=== PATIENT | female | born 1955 | race Caucasian/White ===

== ENCOUNTER 2018-08-23 12:54 | Emergency (ER) | payer MEDICAID ==
[2018-08-23] MEDS ORDERED: Tetracaine HCl/PF 0.5% 4 ML Bottle EYELF ONE (13:08)
--- NOTE | 2018-08-23 13:37 | EDM.PDOC ---
ED HPI GENERAL MEDICAL PROBLEM - General Chief Complaint: Eye Problems Stated Complaint: PUT THE GLU IN EYE NOT HER EYE DROPS Time Seen by Provider: 08/23/18 13:30 Source of Information: Reports: Patient History Limitations: Reports: No Limitations - History of Present Illness INITIAL COMMENTS - FREE TEXT/NARRATIVE: pt placed eye drops in her eyes but instead of the drops she put the glue that hold fingernail s on. She can not open her left eye. Onset: Other ( The pt is nopt able to open her left eye. ) Duration: Hour(s): Location: Reports: Face Associated Symptoms: Reports: No Other Symptoms Left Eye Pain Score (Numeric/FACES): 10 - Related Data Allergies Allergy/AdvReac Type Severity Reaction Status Date / Time No Known Allergies Allergy Verified 08/23/18 13:22 Home Meds: Home Meds NK [No Known Home Meds] 08/23/18 [History] ED ROS GENERAL - Review of Systems Review Of Systems: See Below Constitutional: Reports: No Symptoms HEENT: Reports: Other ( the left eye is glued shut. ) Respiratory: Reports: No Symptoms Cardiovascular: Reports: No Symptoms Endocrine: Reports: No Symptoms GI/Abdominal: Reports: No Symptoms : Reports: No Symptoms ED EXAM GENERAL W FULL EYE - Physical Exam Exam: See Below Text/Narrative:: pt arrived with her left eye glued shut. She put the glue to hold fonger nails on in her eye accidently last nite. She is having pain in the eye. Exam Limited By: No Limitations General Appearance: Alert, Moderate Distress, Other (left eye is glued shut. Tetracaine drops were appied and inserted. With slight manipulation the lid was opened. At that time there was a milky coating over the left cornea. Tetracine drops were inserted in the eye and the coating began to float ansd this was loose solidified glue over the cornea. This was removed without difficyulty. The cornea is inflamed and there is edema present. She is able to read large print. The tetracain was very helpful for her pain. ) Nose: Normal Inspection Throat/Mouth: Normal Inspection Head: Atraumatic Neck: Normal Inspection Respiratory/Chest: No Respiratory Distress Cardiovascular: Regular Rate, Rhythm Course - Vital Signs Last Recorded V/S: Last Vital Signs Temp Pulse 75 08/23/18 13:14 Resp 20 08/23/18 13:14 BP 159/93 H 08/23/18 13:14 Pulse Ox 97 08/23/18 13:14 - Orders/Labs/Meds Meds: Medications Discontinued Medications Generic Name Dose Route Start Last Admin Trade Name Karolina PRN Reason Stop Dose Admin Tetracaine HCl 1 ml 08/23/18 13:08 08/23/18 13:34 Tetracaine 0.5% Steri-Unit Anne-Marie EYELF 08/23/18 13:09 1 drop ASDIRECTED ONE Administration - Re-Assessments/Exams Free Text/Narrative Re-Assessment/Exam: 08/23/18 13:51 [facility] was called and they are willing to see the pt and evaluate the cornea. She is much more comfortable. Departure - Departure Time of Disposition: 13:37 Disposition: Home, Self-Care 01 Condition: Fair Clinical Impression: Eye burn, Conjunctivitis - Discharge Information Referrals: PCP,None [Primary Care Provider] - Forms: ED Department Discharge Care Plan Goals: pt had a large amount of fingernail glue in the left eye. This loosened up and was floating after the tetracine drops were inserted. The glue was removed and she will now be transfered to the [facility].
== END 2018-08-23 14:02 | disposition home or self-care (01) ==
LOC: JP.ED 12:54
DX: T26.62XA Corrosion of cornea and conjunctival sac, left eye, initial encounter (principal); H10.9 Unspecified conjunctivitis
CPT/HCPCS: 99283

== ENCOUNTER 2019-05-01 02:39 | Emergency (ER) | payer MEDICAID ==
[2019-05-01] MEDS ORDERED: Ibuprofen 400 MG Tab PO ONE (03:18)
[2019-05-01] MEDS ORDERED: Acetaminophen 325 MG Tab PO ONE (03:18)
--- NOTE | 2019-05-01 03:28 | EDM.PDOC ---
ED HPI GENERAL MEDICAL PROBLEM - General Chief Complaint: Lower Extremity Injury/Pain Stated Complaint: SHARP PAIN IN UPPER RIGHT LEG Time Seen by Provider: 05/01/19 03:05 Source of Information: Reports: Patient History Limitations: Reports: No Limitations - History of Present Illness INITIAL COMMENTS - FREE TEXT/NARRATIVE: 63-year-old presents with concerns of right lateral thigh pain. Symptoms started approximately 9 hours ago, [place] She describes a crampy pain in the right lateral thigh. It feels like a band running from her right lateral knee to her hip. Pain is provoked by movement of the right lower extremity. Feels better when she pushes on the thigh and applies pressure. She has no change in sensation in her leg. Full strength in the extremity. No falls or trauma that she is aware of. He was carrying multiple bags of groceries with her mother earlier today, suspects it may have been "too much". 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 History: Reports: Fracture Psychiatric History: Reports: Anxiety, Bipolar, Panic Attack, PTSD Endocrine/Metabolic History: Reports: Hyperthyroidism - Past Surgical History Endocrine Surgical History: Reports: None Musculoskeletal Surgical History: Reports: ORIF Social & Family History - Family History Family Medical History: Noncontributory - Tobacco Use Smoking Status *Q: Former Smoker Used Tobacco, but Quit: Yes Month/Year Tobacco Last Used: 30 years - Caffeine Use Caffeine Use: Reports: Coffee, Soda - Recreational Drug Use Recreational Drug Use: No Review of Systems - Review of Systems Review Of Systems: See Below Constitutional: Reports: No Symptoms Eyes: Reports: No Symptoms Ears: Reports: No Symptoms Nose: Reports: No Symptoms Mouth/Throat: Reports: No Symptoms Respiratory: Reports: No Symptoms Cardiovascular: Reports: No Symptoms GI/Abdominal: Reports: No Symptoms Genitourinary: Reports: No Symptoms Musculoskeletal: Reports: Leg Pain Skin: Reports: No Symptoms Neurological: Reports: No Symptoms Psychiatric: Reports: No Symptoms ED EXAM, GENERAL - Physical Exam Exam: See Below Exam Limited By: No Limitations General Appearance: Alert, No Apparent Distress Ears: Normal External Exam Nose: Normal Inspection Throat/Mouth: Normal Inspection Head: Atraumatic, Normocephalic Neck: Normal Inspection Respiratory/Chest: No Respiratory Distress Cardiovascular: Regular Rate, Rhythm GI/Abdominal: Non-Tender, No Distention Back Exam: Normal Inspection Extremities: Normal Inspection, Other (small eccyhymosis right lateral thigh. No swelling. No tenderness. Compartments are soft. Strength intact) Neurological: Alert, Oriented Psychiatric: Normal Mood Skin Exam: Warm, Dry Course - Vital Signs Last Recorded V/S: Last Vital Signs Temp 35.7 C 05/01/19 02:53 Pulse 91 05/01/19 02:53 Resp 20 05/01/19 02:53 BP 185/94 H 05/01/19 02:53 Pulse Ox 96 05/01/19 02:53 - Orders/Labs/Meds Meds: Medications Discontinued Medications Generic Name Dose Route Start Last Admin Trade Name Karolina PRN Reason Stop Dose Admin Acetaminophen 650 mg 05/01/19 03:18 05/01/19 03:23 Tylenol PO 05/01/19 03:19 650 mg NOW ONE Administration Ibuprofen 400 mg 05/01/19 03:18 05/01/19 03:23 Motrin PO 05/01/19 03:19 400 mg ONETIME ONE Administration - Re-Assessments/Exams Free Text/Narrative Re-Assessment/Exam: 63-year-old presents with right lateral thigh pain. Pain was somewhat insidious in onset 9 hours ago. No trauma. Very small ecchymosis on the thigh on exam, otherwise benign physical exam. Patient has an odd affect and is laughing and giggling a lot with a friend that accompanies her. Looking at her [facility] records she also has been seen in [place] for odd musculoskeletal concerns. As well as document insomnia. she has no evidence of compartment syndrome, traumatic injury, hematoma, or what I can gather is emergent etiology for her symptoms. This is likely due to muscle strain or spasm, perhaps IT band overuse injury. At any rate I think we're safe to just treat this conservatively with NSAIDs and activity as tolerated. The patient does report good improvement in her symptoms just using an ice pack in the ED. Discharged 05/01/19 03:33 Departure - Departure Time of Disposition: 03:24 Disposition: Home, Self-Care 01 Clinical Impression: Thigh pain Qualifiers: Laterality: right Qualified Code(s): M79.651 - Pain in right thigh - Discharge Information *PRESCRIPTION DRUG MONITORING PROGRAM REVIEWED*: Yes *COPY OF PRESCRIPTION DRUG MONITORING REPORT IN PATIENT COREY: No Instructions: Muscle Strain, [id number] Referrals: PCP,None [Primary Care Provider] - Forms: ED Department Discharge Additional Instructions: We believe you have a strain of inflation of muscle and/or tendon in your right thigh. Please continue to ice the area Use tylenol and ibuprofen as needed There are no limitation on activity Follow up with your primary doctor if you symptoms persist Sepsis Event Note - Evaluation Sepsis Screening Result: No Definite Risk - Focused Exam Vital Signs: Vital Signs Temp Pulse Resp BP Pulse Ox 05/01/19 02:53 35.7 C 91 20 185/94 H 96 Date Exam was Performed: 05/01/19 Time Exam was Performed: 03:27
== END 2019-05-01 03:37 | disposition home or self-care (01) ==
LOC: JP.ED 02:39
DX: M79.81 Nontraumatic hematoma of soft tissue (principal); Z87.891 Personal history of nicotine dependence; Z88.2 Allergy status to sulfonamides
CPT/HCPCS: 99283; A9270

== ENCOUNTER 2019-12-18 19:17 | Emergency (ER) | payer MEDICAID ==
[2019-12-18] MEDS ORDERED: Famotidine 20 MG/2 ML SDV IVPUSH ONE (19:37)
--- NOTE | 2019-12-18 21:05 | EDM.PDOC ---
ED HPI GENERAL MEDICAL PROBLEM - General Chief Complaint: Lower Extremity Injury/Pain Stated Complaint: FELL HURT RT LEG Time Seen by Provider: 12/18/19 21:00 Source of Information: Reports: Patient, RN, RN Notes Reviewed History Limitations: Reports: No Limitations - History of Present Illness INITIAL COMMENTS - FREE TEXT/NARRATIVE: Pt here in ER after R leg caught between 2 slot machines. Pt c/o pain to touch. Pain 10 to tib/fib. Onset: Today Onset Date: 12/18/19 Duration: Hour(s): Location: Reports: Lower Extremity, Right Quality: Reports: Ache Severity: Moderate Associated Symptoms: Reports: No Other Symptoms Right Ankle Pain Score (Numeric/FACES): 7 - Related Data Allergies Allergy/AdvReac Type Severity Reaction Status Date / Time Sulfa (Sulfonamide Allergy Anaphylactic Verified 12/18/19 20:06 Antibiotics) Shock Home Meds: Home Meds NK [No Known Home Meds] 08/23/18 [History] Past Medical History HEENT History: Reports: Other (See Below) Other HEENT History: corneal abrasion, accidentaly glued eye shut Respiratory History: Reports: Asthma, Bronchitis, Recurrent Gastrointestinal History: Reports: GERD 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 History: Reports: Fracture Psychiatric History: Reports: Anxiety, Bipolar, Depression, Panic Attack, PTSD Endocrine/Metabolic History: Reports: Hyperthyroidism Hematologic History: Reports: Anemia - Past Surgical History Endocrine Surgical History: Reports: None Musculoskeletal Surgical History: Reports: ORIF Social & Family History - Family History Family Medical History: Noncontributory - Tobacco Use Smoking Status *Q: Never Smoker - Caffeine Use Caffeine Use: Reports: Coffee, Soda - Recreational Drug Use Recreational Drug Use: Yes Review of Systems - Review of Systems Review Of Systems: See Below Constitutional: Reports: No Symptoms Eyes: Reports: No Symptoms Ears: Reports: No Symptoms Nose: Reports: No Symptoms Mouth/Throat: Reports: No Symptoms Respiratory: Reports: No Symptoms Cardiovascular: Reports: No Symptoms GI/Abdominal: Reports: No Symptoms Genitourinary: Reports: No Symptoms Musculoskeletal: Reports: Leg Pain (R tib/fib) Skin: Reports: Other (2x2 abrasion to delong) Neurological: Reports: No Symptoms Psychiatric: Reports: No Symptoms ED EXAM, GENERAL - Physical Exam Exam: See Below Exam Limited By: No Limitations General Appearance: Alert, WD/WN, No Apparent Distress Head: Normocephalic Neck: Normal Inspection, Non-Tender, Full Range of Motion Respiratory/Chest: No Respiratory Distress, Lungs Clear, Normal Breath Sounds Cardiovascular: Regular Rate, Rhythm Peripheral Pulses: 2+: Dorsalis Pedis (L), Dorsalis Pedis (R) (Female) Exam: Deferred Rectal (Female) Exam: Deferred Extremities: Leg Pain, Limited Range of Motion (R tib/fib pain ) Neurological: Alert, Oriented, CN II-XII Intact Psychiatric: Normal Affect, Normal Mood Skin Exam: Warm, Dry, Normal Color, No Rash Course - Vital Signs Last Recorded V/S: Last Vital Signs Temp 36.3 C 12/18/19 20:08 Pulse 77 12/18/19 20:08 Resp 16 12/18/19 20:08 BP 144/78 H 12/18/19 20:08 Pulse Ox 97 12/18/19 20:08 - Orders/Labs/Meds Orders: Active Orders 24 hr Category Date Time Status Tibia Fibula Rt [CR] Stat Exams 12/18/19 20:17 Taken Meds: Medications Discontinued Medications Generic Name Dose Route Start Last Admin Trade Name Freq PRN Reason Stop Dose Admin Famotidine 20 mg 12/18/19 19:37 12/18/19 20:47 Pepcid IVPUSH 12/18/19 19:38 Not Given ONETIME ONE - Re-Assessments/Exams Free Text/Narrative Re-Assessment/Exam: 12/18/19 21:05 Examine pt Order norberto wrap and crutches Departure - Departure Time of Disposition: 21:06 Disposition: Home, Self-Care 01 Condition: Good Clinical Impression: Muscle strain - Discharge Information *PRESCRIPTION DRUG MONITORING PROGRAM REVIEWED*: Not Applicable *COPY OF PRESCRIPTION DRUG MONITORING REPORT IN PATIENT COREY: Not Applicable Instructions: Crutch Use, Adult, [id number], Muscle Strain, [id number] Referrals: PCP,None [Primary Care Provider] - Additional Instructions: Please take 650 mg Tylenol every 6 hours for pain as needed May use Ibuprofen 800 mg by mouth every 6 hours for pain. Do not take Tylenol and Ibiprofen at the same time May ice the R leg as needed for pain Use crutches as instructed Seek medical care if the symptoms worsen Sepsis Event Note (ED) - Evaluation Sepsis Screening Result: No Definite Risk - Focused Exam Vital Signs: Vital Signs Temp Pulse Resp BP Pulse Ox 12/18/19 20:08 36.3 C 77 16 144/78 H 97 12/18/19 19:43 36.3 C 77 16 144/78 H 97 - Problem List & Annotations (1) Muscle strain SNOMED Code(s): 81695846 Code(s): T14.8XXA - OTHER INJURY OF UNSPECIFIED BODY REGION, INITIAL ENCOUNTER Status: Acute Priority: High Current Visit: Yes Onset Date: ~12/18/19 - Problem List Review Problem List Initiated/Reviewed/Updated: Yes - My Orders Last 24 Hours: My Active Orders 12/18/19 20:17 Tibia Fibula Rt [CR] Stat - Assessment/Plan Last 24 Hours: My Active Orders 12/18/19 20:17 Tibia Fibula Rt [CR] Stat Plan: Please take 650 mg Tylenol every 6 hours for pain as needed May use Ibuprofen 800 mg by mouth every 6 hours for pain. Do not take Tylenol and Ibiprofen at the same time May ice the R leg as needed for pain Use crutches as instructed Seek medical care if the symptoms worsen
--- NOTE | 2019-12-19 09:41 | CR ---
Tibia Fibula Rt CLINICAL HISTORY: Fall FINDINGS: Two views show no evidence of fracture or bone destruction. No soft tissue abnormality is seen. Impression: Negative
== END 2019-12-18 21:29 | disposition home or self-care (01) ==
LOC: JP.ED 19:17
DX: S86.911A Strain of unspecified muscle(s) and tendon(s) at lower leg level, right leg, initial encounter (principal); Z88.2 Allergy status to sulfonamides; J45.909 Unspecified asthma, uncomplicated; W23.0XXA Caught, crushed, jammed, or pinched between moving objects, initial encounter
CPT/HCPCS: 73590-26-RT; 73590-RT; 99283